=== PATIENT | female | born 1955 ===

== ENCOUNTER 2016-10-23 14:24 | Inpatient (IN) | payer MEDICAID, OTHER ==
[2016-10-23 14:24] VITALS: BMI 22.2
--- NOTE | 2016-10-23 15:02 | ED PDOC ---
HPI: General Adult Time Seen by Provider: 10/23/16 14:43 Chief Complaint (Nursing): Weakness/Neurological Deficit Chief Complaint (Provider): difficulty walking History Per: Other (home child care provider) History/Exam Limitations: clinical condition Additional Complaint(s): 61yo female brought to the ED by homemaker for difficulty walking / confusion. Patient was dropped off from daycare to homemaker today who immediately noticed a change in balance while walking. States this is not normal for patient. Patient denies any pain. Onset unknown. History obtained from home health aide who just started taking care of patient this afternoon. Past Medical History Reviewed: Historical Data, Nursing Documentation, Vital Signs Vital Signs: Last Vital Signs Temp 97.2 F L 10/23/16 19:43 Pulse 50 L 10/23/16 20:05 Resp 18 10/23/16 20:05 BP 116/63 10/23/16 19:43 Pulse Ox 100 10/23/16 19:43 - Medical History PMH: Alzheimer's Disease, Dementia Denies: Diabetes, Hepatitis, HIV, HTN, Chronic Kidney Disease, Seizures, Sexually Transmitted Disease - Family History Family History: States: Unknown Family Hx - Home Medications Home Medications: Ambulatory Orders Medication Instructions Recorded Folic Acid 1 mg PO DAILY 06/19/16 Memantine HCl/Donepezil HCl 1 cap PO DAILY 09/19/16 [Namzaric Titration Pack] Mirtazapine [Remeron] 15 mg PO HS 09/19/16 Rivastigmine [Exelon 13.3 mg/24 hr 1 patch TD DAILY 09/19/16 Patch] - Allergies Allergies/Adverse Reactions: Allergies Allergy/AdvReac Type Severity Reaction Status Date / Time No Known Allergies Allergy Verified 10/23/16 14:30 Review of Systems Review Of Systems: ROS cannot be obtained secondary to pt's inabilty to answer questions. Cardiovascular: Negative for: Chest Pain Neurological: Positive for: Confusion. Negative for: Headache Physical Exam - Reviewed Nursing Documentation Reviewed: Yes Vital Signs Reviewed: Yes - Physical Exam Appears: Positive for: Well, Non-toxic, No Acute Distress Head Exam: Positive for: ATRAUMATIC, NORMAL INSPECTION, NORMOCEPHALIC Skin: Positive for: Pallor Eye Exam: Positive for: EOMI, PERRL ENT: Positive for: Other (tacky muous membranes) Cardiovascular/Chest: Positive for: Regular Rate, Rhythm Respiratory: Positive for: Normal Breath Sounds. Negative for: Rales, Rhonchi, Wheezing Gastrointestinal/Abdominal: Positive for: Soft. Negative for: Tenderness Extremity: Positive for: Normal ROM. Negative for: Tenderness Neurologic/Psych: Positive for: Gait (ataxic gait), Aphasia (possible expressive aphasia), Other (Normal finger to nose test.). Negative for: Motor/ Sensory Deficits, Facial Droop - Laboratory Results Result Diagrams: 10/23/16 15:05 10/23/16 15:05 - ECG ECG: Positive for: Interpreted By Me, Viewed By Me ECG Rhythm: Positive for: Sinus Bradycardia. Negative for: ST/T Changes O2 Sat by Pulse Oximetry: 97 (RA) Pulse Ox Interpretation: Normal Medical Decision Making Medical Decision Makin Impression weakness Differential includes stroke, metabolic encephalopathy, dehydration, dementia, sepsis. Pt will be hospitalized pending ER workup, for full possible CVA. Plan: -EKG -CT Head w/o -CXR -Labs -blood culture -reassess Accession No. : [id number] Patient Name / ID : ETIENNE LEDESMA / [id number] Exam Date : 10/23/2016 15:27:44 ( Approved ) Study Comment : Sex / Age : F / 61Y Creator : Rufino Ruff MD Dictator : Rufino Ruff MD Answering Service Telephone Operator : Fine Grade Operator : Rufino Ruff MD Approver2 : Report Date : 10/23/2016 16:02:29 My Comment : PROCEDURE: CT HEAD WITHOUT CONTRAST. HISTORY: ataxic gait COMPARISON: Comparison made with CT scan brain 06/19/2016. TECHNIQUE: Axial computed tomography images were obtained through the head/brain without intravenous contrast. Radiation dose: Total exam DLP = 757.63 mGy-cm. This CT exam was performed using one or more of the following dose reduction techniques: Automated exposure control, adjustment of the mA and/or kV according to patient size, and/or use of iterative reconstruction technique. FINDINGS: HEMORRHAGE: No acute parenchymal, subarachnoid nor extra-axial hemorrhage. BRAIN: There is a small vague elliptical shaped area of low-attenuation right aspect of the ritesh best seen on axial series 4, image number 12 which could represent artifact however age indeterminate lacunar-type infarct cannot be excluded. Clinical correlation recommended. Re- demonstrated diffuse/confluent periventricular white matter ischemic changes again seen extending peripherally into the deep and subcortical white matter both cerebral hemispheres. In addition, there is extension of these changes into the white matter tracts of both basal nuclei. Multiple more discrete chronic bilateral basal nuclei lacunar type infarcts are also felt to be present. Bold VENTRICLES: Mild generalized volume loss. CALVARIUM: There are no acute calvarial fracture seen. . Note also again made of a rounded bony overgrowth arising from the left suboccipital calvarium that is nonspecific though could represent a small exostosis unchanged from prior study. PARANASAL SINUSES: The frontal sinuses remain hypoplastic/underpneumatized. Remaining visualized paranasal sinuses are well-developed. No fluid levels seen to suggest acute sinusitis. MASTOID AIR CELLS: Unremarkable as visualized. No inflammatory changes. OTHER FINDINGS: None. IMPRESSION: Questionable artifact versus age-indeterminate lacunar type infarct right aspect of the ritesh as above. Mild to moderate chronic white matter ischemic changes. Pt getting agitated in ER. Ativan/Haldol ordered. DW Dr Childs Med Service and Dr Livingston Neuro oncall. Orders placed as per discussion. Disposition - Clinical Impression Clinical Impression: Ataxia Counseled Patient/Family Regarding: Studies Performed, Diagnosis - Disposition Disposition Time: 15:00 Condition: STABLE - Pt Status Changed To: Hospital Disposition Of: Inpatient - Admit Certification Admit to Inpatient:: After my assessment, the patient will require hospitalization for at least two midnights. This is because of the severity of symptoms shown, intensity of services needed, and/or the medical risk in this patient being treated as an outpatient. - POA Present On Arrival: Falls Or Trauma Additional Comments - Additional Comments Additional Comments: Scribe Attestation: Documented by Ez Smith, acting as a scribe for Yanni Robertson MD. Provider Scribe Attestation: All medical record entries made by the Scribe were at my direction and personally dictated by me. I have reviewed the chart and agree that the record accurately reflects my personal performance of the history, physical exam, medical decision making, and the department course for this patient. I have also personally directed, reviewed, and agree with the discharge instructions and disposition.
[2016-10-23 15:29] LABS: VENOUS BLOOD GAS BASE EXCESS 4.3 mmol/L (0.0-2.0); VENOUS BLOOD GAS PCO2 57 mmHg (40-60); VENOUS BLOOD PH 7.35 (7.32-7.43)
[2016-10-23 15:32] LABS: BASO % 0.4 % (0.0-2.0); EOS % 0.3 % (0.0-4.0); HEMATOCRIT 39.2 % (34.0-47.0); LYMPH # 1.2 K/uL (1.0-4.3); MEAN CELL VOLUME 90.5 fl (81.0-99.0); MEAN CORPUSCULAR HEMOGLOBIN 29.9 pg (27.0-31.0); MEAN CORPUSCULAR HGB CONC 33.1 g/dL (33.0-37.0); MEAN PLATELET VOLUME 7.9 fl (7.2-11.7); MONO # 0.6 K/uL (0.0-0.8); MONO % 4.9 % (0.0-10.0); NEUT # 9.7 K/uL (1.8-7.0); NEUT % 84.4 % (50.0-75.0); RED CELL DISTRIBUTION WIDTH 13.9 % (11.5-14.5); WHITE BLOOD COUNT 11.5 K/uL (4.8-10.8)
[2016-10-23 15:50] LABS: ALB/GLOB RATIO 1.5 (1.0-2.1); ALKALINE PHOSPHATASE 69 U/L (38-126); ALT/SGPT 41 U/L (9-52); AST/SGOT 25 U/L (14-36); BILIRUBIN,TOTAL 0.6 mg/dl (0.2-1.3); BLOOD UREA NITROGEN 8 mg/dl (7-17); CARBON DIOXIDE 26 mmol/L (22-30); CHLORIDE 98 mmol/L (98-107); CHOLESTEROL 128 mg/dL (0-199); GFR AFRICAN-AMERICAN > 60; GLUCOSE,RANDOM 170 mg/dL (65-105); MAGNESIUM 2.1 MG/DL (1.6-2.3); PHOSPHOROUS 4.6 mg/dl (2.5-4.5); POTASSIUM 3.6 MMOL/L (3.6-5.0); SODIUM 140 mmol/l (132-148); TOTAL PROTEIN 6.8 G/DL (6.3-8.2)
--- NOTE | 2016-10-23 16:03 | CT ---
PROCEDURE: CT HEAD WITHOUT CONTRAST. HISTORY: ataxic gait COMPARISON: Comparison made with CT scan brain 06/19/2016. TECHNIQUE: Axial computed tomography images were obtained through the head/brain without intravenous contrast. Radiation dose: Total exam DLP = 757.63 mGy-cm. This CT exam was performed using one or more of the following dose reduction techniques: Automated exposure control, adjustment of the mA and/or kV according to patient size, and/or use of iterative reconstruction technique. FINDINGS: HEMORRHAGE: No acute parenchymal, subarachnoid nor extra-axial hemorrhage. BRAIN: There is a small vague elliptical shaped area of low-attenuation right aspect of the ritesh best seen on axial series 4, image number 12 which could represent artifact however age indeterminate lacunar-type infarct cannot be excluded. Clinical correlation recommended. Re- demonstrated diffuse/confluent periventricular white matter ischemic changes again seen extending peripherally into the deep and subcortical white matter both cerebral hemispheres. In addition, there is extension of these changes into the white matter tracts of both basal nuclei. Multiple more discrete chronic bilateral basal nuclei lacunar type infarcts are also felt to be present. Bold VENTRICLES: Mild generalized volume loss. CALVARIUM: There are no acute calvarial fracture seen. . Note also again made of a rounded bony overgrowth arising from the left suboccipital calvarium that is nonspecific though could represent a small exostosis unchanged from prior study. PARANASAL SINUSES: The frontal sinuses remain hypoplastic/underpneumatized. Remaining visualized paranasal sinuses are well-developed. No fluid levels seen to suggest acute sinusitis. MASTOID AIR CELLS: Unremarkable as visualized. No inflammatory changes. OTHER FINDINGS: None. IMPRESSION: Questionable artifact versus age-indeterminate lacunar type infarct right aspect of the ritesh as above. Mild to moderate chronic white matter ischemic changes.
[2016-10-23] MEDS ORDERED: Aspirin 325 mg EC Tablets PO ONE (16:12)
[2016-10-23 16:16] LABS: PARTIAL THROMBOPLASTIN TIME 22.5 SECONDS (23.3-32.5)
--- NOTE | 2016-10-23 16:31 | RAD ---
HISTORY: weakness COMPARISON: Comparison chest 08/29/2016. FINDINGS: LUNGS: No active pulmonary disease. Mild biapical pleural thickening. PLEURA: No significant pleural effusion identified, no pneumothorax apparent. CARDIOVASCULAR: Normal. OSSEOUS STRUCTURES: No significant abnormalities. VISUALIZED UPPER ABDOMEN: Normal. OTHER FINDINGS: None. IMPRESSION: No acute infiltrates Mild biapical pleural thickening.
--- NOTE | 2016-10-23 18:58 | MRI ---
PROCEDURE: MRI BRAIN WITHOUT CONTRAST HISTORY: ataxia COMPARISON: None. TECHNIQUE: Multiplanar, multisequence MR images of the brain were obtained without intravenous contrast enhancement. FINDINGS: HEMORRHAGE: No acute parenchymal, subarachnoid or extra-axial hemorrhage. DWI: No evidence of acute or subacute infarct. The BRAIN PARENCHYMA: Moderate diffuse/ confluent chronic periventricular white matter ischemic changes are seen extending peripherally into the deep and subcortical white matter both cerebral hemispheres. Multiple more discrete chronic appearing lacunar type infarcts also seen scattered about the deep and subcortical white matter as well as both basal nuclei. None of these changes exhibit restricted diffusion. VENTRICLES: Mild generalized volume loss. CRANIUM: Unremarkable. ORBITS: Grossly unremarkable. PARANASAL SINUSES/MASTOIDS: No evidence of acute sinusitis. VASCULAR SYSTEM: Visualized major vascular flow voids at skull base are patent. OTHER FINDINGS: Are None. IMPRESSION: No the acute intracranial hemorrhage or infarct. Moderate chronic white matter and basal nuclei ischemic changes. Mild generalized volume loss.
--- NOTE | 2016-10-23 19:32 | CARD ---
APPROVED REPORT EKG Measurement Heart [id number] <Conclusion> Sinus bradycardia Possible Left atrial enlargement Left ventricular hypertrophy Abnormal ECG
--- NOTE | 2016-10-23 20:10 | CP.PCM.CON ---
History of Present Illness - History of Present Illness History of Present Illness: Mrs. Bautista is a 61-year-old woman with a past medical history of advanced dementia who was noted to be unstable when walking today. She presented to the ED and an MRI of the brain was ordered. However, she was apparently given 5 mg of Haldol and 2 mg of Ativan. She is now somnolent and difficult to arouse or examine. Review of Systems - Review of Systems All systems: reviewed and no additional remarkable complaints except Review of Systems: unable to obtain the rest due to the patient's current condition. Past Patient History - Past Medical History & Family History Past Medical History?: Yes - Past Social History Smoking Status: Unknown If Ever Smoked - CARDIAC Hx Hypertension: No - PULMONARY Hx Respiratory Disorders: No - NEUROLOGICAL Hx Alzheimer's Disease: Yes Hx Dementia: Yes Hx Seizures: No - HEENT Hx HEENT Problems: No - RENAL Hx Chronic Kidney Disease: No - ENDOCRINE/METABOLIC Hx Endocrine Disorders: No - HEMATOLOGICAL/ONCOLOGICAL Hx Human Immunodeficiency Virus (HIV): No - INTEGUMENTARY Hx Dermatological Problems: No - MUSCULOSKELETAL/RHEUMATOLOGICAL Hx Falls: No Hx Unsteady Gait: Yes - GASTROINTESTINAL Hx Gastrointestinal Disorders: No - GENITOURINARY/GYNECOLOGICAL Hx Sexually Transmitted Disorders: No - PSYCHIATRIC Hx Psychophysiologic Disorder: No Hx Substance Use: No - SURGICAL HISTORY Hx Surgeries: No - ANESTHESIA Hx Anesthesia: No Meds Allergies/Adverse Reactions: Allergies Allergy/AdvReac Type Severity Reaction Status Date / Time No Known Allergies Allergy Verified 10/23/16 14:30 - Medications Medications: Current Medications Aspirin (Ecotrin) 81 mg PO DAILY [facility] Donepezil HCl (Aricept) 10 mg PO HS [facility] Enoxaparin Sodium (Lovenox) 40 mg SC DAILY [facility] PRN Reason: Protocol Folic Acid (Folic Acid) 1 mg PO DAILY [facility] Home Med (Rivastigmine [Exelon 13.3 Mg/24 Hr Patch]) 1 patch TD DAILY [facility] Dextrose/Sodium Chloride (Dextrose 5%/0.9% Ns 1000 Ml) 1,000 mls @ 60 mls/hr IV .[id number] [facility] Stop: 10/24/16 20:16 Memantine (Namenda) 10 mg PO DAILY [facility] Mirtazapine (Remeron) 15 mg PO HS [facility] Physical Exam - Constitutional Appears: Well - Head Exam Head Exam: ATRAUMATIC, NORMAL INSPECTION, NORMOCEPHALIC - Eye Exam Eye Exam: EOMI, Normal appearance, PERRL - Neurological Exam Additional comments: Asleep. Pupils are reactive, reflexes are intact, plantar responses are downgoing, she withdraws to pain. Unable to perform the rest of the exam at this time. Results - Vital Signs Recent Vital Signs: Last Vital Signs Temp 97.2 F L 10/23/16 19:43 Pulse 51 L 10/23/16 19:43 Resp 20 10/23/16 19:43 BP 116/63 10/23/16 19:43 Pulse Ox 100 10/23/16 19:43 - Labs Result Diagrams: 10/23/16 15:05 10/23/16 15:05 - Imaging and Cardiology MRI - head Status: Image reviewed by me, Report reviewed by me (No acute findings on MRI of the brain. Chronic small vessel disease. No pontine infarct is identified.) Assessment & Plan (1) Ataxia Assessment and Plan: Unable to fully assess at this time. MRI of the brain is not consistent with any acute injury pattern. Will re-evaluate in the AM when Haldol and Ativan effect is less evident. Status: Acute
[2016-10-23] MEDS ORDERED: Dextrose 5%/0.9% NS 1,000 ML IV SCH (20:15)
[2016-10-24 07:06] LABS: HEMATOCRIT 41.2 % (34.0-47.0); MEAN CELL VOLUME 91.6 fl (81.0-99.0); MEAN CORPUSCULAR HEMOGLOBIN 29.7 pg (27.0-31.0); MEAN CORPUSCULAR HGB CONC 32.4 g/dL (33.0-37.0); RED CELL DISTRIBUTION WIDTH 13.9 % (11.5-14.5); WHITE BLOOD COUNT 14.1 K/uL (4.8-10.8)
[2016-10-24 07:26] LABS: ALB/GLOB RATIO 1.4 (1.0-2.1); ALKALINE PHOSPHATASE 68 U/L (38-126); ALT/SGPT 35 U/L (9-52); AST/SGOT 23 U/L (14-36); BILIRUBIN,TOTAL 0.9 mg/dl (0.2-1.3); BLOOD UREA NITROGEN 6 mg/dl (7-17); CARBON DIOXIDE 29 mmol/L (22-30); CHLORIDE 102 mmol/L (98-107); GFR AFRICAN-AMERICAN > 60; GLUCOSE,RANDOM 134 mg/dL (65-105); SODIUM 144 mmol/l (132-148); TOTAL PROTEIN 6.6 G/DL (6.3-8.2)
[2016-10-24 07:53] LABS: THYROID STIMULATING HORMONE 0.49 mIU/ML (0.46-4.68)
[2016-10-24] MEDS: Enoxaparin 40 mg Syringe SC SCH (09:30)
--- NOTE | 2016-10-24 09:53 | US ---
PROCEDURE: Duplex ultrasound of the carotid and vertebral arteries. HISTORY: ataxia COMPARISON: None available. TECHNIQUE: Grayscale and duplex Doppler evaluation of the cervical carotid and vertebral arteries were performed. The common carotid, carotid bifurcations and cervical ICA and proximal ECA were evaluated. The vertebral arteries were evaluated for gross patency and direction. FINDINGS: RIGHT CAROTID ARTERIES: Common Carotid Artery: Normal. Maximal flow velocity of 82 cm/s. Carotid Bifurcation: Normal. Internal Carotid Artery:Normal. Maximal flow velocity of 100.3 cm/s. External Carotid Artery (proximal branches): Normal. Maximal flow velocity of 89.9 cm/s. ICA/CCA Ratio: 1.2 LEFT CAROTID ARTERIES: Common Carotid Artery: Normal. Maximal flow velocity of 78.5 cm/s. Carotid Bifurcation: Normal. Internal Carotid Artery:Normal. Maximal flow velocity of 94.3 cm/s. External Carotid Artery (proximal branches): Normal. Maximal flow velocity of 72.6 cm/s. ICA/CCA Ratio: 1.2 VERTEBRAL ARTERIES: Right Vertebral Artery: Patent. Antegrade flow. Left Vertebral Artery: Patent. Antegrade flow. OTHER FINDINGS: None. IMPRESSION: No hemodynamically significant stenosis. No evidence of atherosclerotic plaques.
[2016-10-24 15:14] LABS: RBC URINE 1 /hpf (0-3); URINE BILIRUBIN NEGATIVE (NEGATIVE); URINE BLOOD SMALL (NEGATIVE); URINE COLOR STRAW (YELLOW); URINE GLUCOSE (UA) NEG (Normal); URINE KETONE NEGATIVE (NEGATIVE); URINE LEUKOCYTE ESTERASE SMALL Leu/uL (Negative); URINE PROTEIN NEGATIVE (NEGATIVE); URINE UROBILINOGEN 0.2-1.0 mg/dL (0.2-1.0); WBC URINE 2 /hpf (0-5)
[2016-10-24] MEDS: RIVASTIGMINE TD SCH (21:40)
--- NOTE | 2016-10-24 22:36 | CP.PCM.HP ---
History of Present Illness - History of Present Illness History of Present Illness: A 61 yr old female with hx of Dementia, dependant on ADL\IDL was brought by homemaker as she appeared to be more confused,not her base line.found to be elevated WBC . sitting in chair,not eating much,pleasant looking. Present on Admission - Present on Admission Any Indicators Present on Admission: No Review of Systems - Review of Systems All systems: reviewed and no additional remarkable complaints except - Neurological Neurological: Behavioral Changes - Hematologic/Lymphatic Additional comments: notes says she being ok to most of questions. Past Patient History - Past Medical History & Family History Past Medical History?: Yes - Past Social History Smoking Status: Unknown If Ever Smoked - CARDIAC Hx Hypertension: No - PULMONARY Hx Respiratory Disorders: No - NEUROLOGICAL Hx Alzheimer's Disease: Yes Hx Dementia: Yes Hx Seizures: No - HEENT Hx HEENT Problems: No - RENAL Hx Chronic Kidney Disease: No - ENDOCRINE/METABOLIC Hx Endocrine Disorders: No - HEMATOLOGICAL/ONCOLOGICAL Hx Human Immunodeficiency Virus (HIV): No - INTEGUMENTARY Hx Dermatological Problems: No - MUSCULOSKELETAL/RHEUMATOLOGICAL Hx Falls: No Hx Unsteady Gait: Yes - GASTROINTESTINAL Hx Gastrointestinal Disorders: No - GENITOURINARY/GYNECOLOGICAL Hx Sexually Transmitted Disorders: No - PSYCHIATRIC Hx Psychophysiologic Disorder: No Hx Substance Use: No - SURGICAL HISTORY Hx Surgeries: No - ANESTHESIA Hx Anesthesia: No Meds Allergies/Adverse Reactions: Allergies Allergy/AdvReac Type Severity Reaction Status Date / Time No Known Allergies Allergy Verified 10/23/16 14:30 Physical Exam - Constitutional Appears: No Acute Distress - Head Exam Head Exam: NORMAL INSPECTION - Eye Exam Eye Exam: EOMI, Normal appearance - ENT Exam ENT Exam: Normal Exam - Neck Exam Neck exam: Positive for: Normal Inspection - Respiratory Exam Respiratory Exam: Clear to Auscultation Bilateral, NORMAL BREATHING PATTERN - Cardiovascular Exam Cardiovascular Exam: REGULAR RHYTHM, +S1, +S2. absent: Systolic Murmur - GI/Abdominal Exam GI & Abdominal Exam: Normal Bowel Sounds, Soft. absent: Tenderness - Neurological Exam Neurological exam: Alert Additional comments: slow gait slow mentation. knows her name,rest of questions, remains silent. no focal deficits, obeys commands - Psychiatric Exam Psychiatric exam: Flat Affect - Skin Skin Exam: Normal Color Results - Vital Signs Recent Vital Signs: Last Vital Signs Temp 97.3 F L 10/24/16 21:17 Pulse 69 10/24/16 21:19 Resp 18 10/24/16 21:17 BP 151/80 H 10/24/16 21:17 Pulse Ox 100 10/24/16 21:17 - Labs Result Diagrams: 10/25/16 05:10 10/24/16 06:20 Labs: Laboratory Results - last 24 hr 10/24/16 10/24/16 10/24/16 01:15 06:20 14:30 WBC 14.1 H RBC 4.49 Hgb 13.3 Hct 41.2 MCV 91.6 MCH 29.7 MCHC 32.4 L RDW 13.9 Plt Count 248 Sodium 144 Potassium 4.0 Chloride 102 Carbon Dioxide 29 Anion Gap 16 BUN 6 L Creatinine 0.6 L Est GFR ( Amer) > 60 Est GFR (Non-Af Amer) > 60 Random Glucose 134 H Hemoglobin A1c 5.9 Calcium 9.0 Total Bilirubin 0.9 AST 23 ALT 35 Alkaline Phosphatase 68 Troponin I < 0.0120 < 0.0120 Total Protein 6.6 Albumin 3.9 Globulin 2.8 Albumin/Globulin Ratio 1.4 TSH 3rd Generation 0.49 Urine Color Straw Urine Clarity Clear Urine pH 8.0 Ur Specific [place] < 1.005 Urine Protein Negative Urine Glucose (UA) Neg Urine Ketones Negative Urine Blood Small Urine Nitrate Negative Urine Bilirubin Negative Urine Urobilinogen 0.2-1.0 Ur Leukocyte Esterase Small Urine RBC (Auto) 1 Urine Microscopic WBC 2 - EKG Data EKG Interpreted by: Other - Imaging and Cardiology CT scan - head Status: Report reviewed by me Chest x-ray Status: Report reviewed by me Assessment & Plan (1) Leukocytosis Status: Acute Comment: wbc from 11 to 14. blood c\s. UA. start on rocephin for now. r\o sepsis (2) Ataxia Status: Acute Comment: not noted now. MRI of head- NO ACUTE CHANGES. pt EVALV. (3) Alzheimer's dementia Status: Chronic Comment: CONTINUE HOME MEDS. Decision To Admit - Pt Status Changed To: Hospital Disposition Of: Inpatient - Admit Certification Admit to Inpatient:: After my assessment, the patient will require hospitalization for at least two midnights. This is because of the severity of symptoms shown, intensity of services needed, and/or the medical risk in this patient being treated as an outpatient. - . Bed Request Type: Med/Surg Admitting Physician: Sophy Childs
[2016-10-25 06:46] LABS: MEAN CELL VOLUME 91.3 fl (81.0-99.0); MEAN CORPUSCULAR HEMOGLOBIN 29.9 pg (27.0-31.0); MEAN CORPUSCULAR HGB CONC 32.8 g/dL (33.0-37.0); RED CELL DISTRIBUTION WIDTH 13.9 % (11.5-14.5); WHITE BLOOD COUNT 9.7 K/uL (4.8-10.8)
[2016-10-25] MEDS: RIVASTIGMINE TD SCH (08:28)
[2016-10-25] MEDS: Enoxaparin 40 mg Syringe SC SCH (08:29)
--- NOTE | 2016-10-25 21:29 | CP.PCM.PN ---
Subjective - Date & Time of Evaluation Date of Evaluation: 10/25/16 Time of Evaluation: 15:00 - Subjective Subjective: vitals stable. one set of blood c\s- gram positive cocci.wbc- 9.7, tsh -normal, normal hba1c. no new changes. UA-normal. Objective - Vital Signs/Intake and Output Vital Signs (last 24 hours): Temp Pulse Resp BP Pulse Ox 98.1 F 70 20 132/76 97 10/25/16 20:02 10/25/16 20:02 10/25/16 20:02 10/25/16 20:02 10/25/16 20:02 - Medications Medications: Current Medications Acetaminophen (Tylenol 325mg Tab) 650 mg PO Q4 PRN PRN Reason: Headache Last Admin: 10/25/16 01:03 Dose: 650 mg Aspirin (Ecotrin) 81 mg PO DAILY [facility] Last Admin: 10/25/16 08:27 Dose: 81 mg Donepezil HCl (Aricept) 10 mg PO HS [facility] Last Admin: 10/24/16 21:41 Dose: 10 mg Enoxaparin Sodium (Lovenox) 40 mg SC DAILY [facility] PRN Reason: Protocol Last Admin: 10/25/16 08:29 Dose: 40 mg Folic Acid (Folic Acid) 1 mg PO DAILY [facility] Last Admin: 10/25/16 08:28 Dose: 1 mg Home Med (Rivastigmine [Exelon 13.3 Mg/24 Hr Patch]) 1 patch TD DAILY [facility] Last Admin: 10/25/16 08:28 Dose: 1 patch Ceftriaxone Sodium 1 gm/ (Sodium Chloride) 100 mls @ 100 mls/hr IVPB DAILY [facility] Last Admin: 10/25/16 08:35 Dose: 100 mls/hr Memantine (Namenda) 10 mg PO DAILY [facility] Last Admin: 10/25/16 08:27 Dose: 10 mg Mirtazapine (Remeron) 15 mg PO HS [facility] Last Admin: 10/24/16 21:41 Dose: 15 mg - Labs Labs: 10/25/16 05:10 10/24/16 06:20 PT 11.0 SECONDS (9.6-11.2) 10/23/16 15:05 INR 1.06 (0.92-1.08) 10/23/16 15:05 APTT 22.5 SECONDS (23.3-32.5) L 10/23/16 15:05 - Additional Findings Additional findings: - Constitutional Appears: No Acute Distress - Head Exam Head Exam: NORMAL INSPECTION - Eye Exam Eye Exam: EOMI, Normal appearance - ENT Exam ENT Exam: Normal Exam - Neck Exam Neck exam: Positive for: Normal Inspection - Respiratory Exam Respiratory Exam: Clear to Auscultation Bilateral, NORMAL BREATHING PATTERN - Cardiovascular Exam Cardiovascular Exam: REGULAR RHYTHM, +S1, +S2. absent: Systolic Murmur - GI/Abdominal Exam GI & Abdominal Exam: Normal Bowel Sounds, Soft. absent: Tenderness - Neurological Exam Neurological exam: Alert Additional comments: slow gait slow mentation. knows her name,rest of questions, remains silent. no focal deficits, obeys commands - Psychiatric Exam Psychiatric exam: normal Affect - Skin Skin Exam: Normal Color Assessment and Plan (1) Leukocytosis Assessment & Plan: r\o sepsis likley contamination repeat blood c\s continue meds. Status: Acute (2) Ataxia Status: Resolved (3) Alzheimer's dementia Status: Chronic - Assessment and Plan (Free Text) Assessment: continue meds
[2016-10-26] MEDS: Enoxaparin 40 mg Syringe SC SCH (10:37)
[2016-10-26] MEDS: RIVASTIGMINE TD SCH (10:37)
[2016-10-26 11:55] VITALS: RESP 18
--- NOTE | 2016-10-26 12:14 | CARD ---
APPROVED REPORT EXAM: Two-dimensional and M-mode echocardiogram with Doppler and color Doppler. Other Information Quality : AverageRhythm : NSR INDICATION Ataxia 2D DIMENSIONS IVSd0.93 (0.7-1.1cm)LVDd3.11 (3.9-5.9cm) LVOT Diameter1.88 (1.8-2.4cm)PWd0.93 (0.7-1.1cm) IVSs1.02 (0.8-1.2cm)LVDs2.45 (2.5-4.0cm) FS (%) 21.3 %PWs1.07 (0.8-1.2cm) M-Mode DIMENSIONS Left Atrium (MM)2.47 (2.5-4.0cm)Aortic Root2.47 (2.2-3.7cm) Mitral Valve MV E Owgdvxmh00.8cm/sMV DECEL YLLX078oyPV A Ziiqiszz32.2cm/s MV IAK34foW/A ratio1.1MVA (PHT)2.65cm2 TDI Lateral E' Peak V12.30cm/sMedial E' Peak V9.45cm/sE/Lateral E'5.1 E/Medial E'6.6 LEFT VENTRICLE The left ventricle is normal size. There is normal left ventricular wall thickness. The left ventricular function is normal. The left ventricular ejection fraction is - 65%. There is normal LV segmental wall motion. The left ventricular diastolic function is abnormal. No left ventricle thrombus noted on this study. There is no ventricular septal defect visualized. There is no left ventricular aneurysm. There is no mass noted in the left ventricle. RIGHT VENTRICLE The right ventricle is normal size. There is normal right ventricular wall thickness. The right ventricular systolic function is normal. ATRIA The left atrium size is normal. There is no thrombus suspected in the left atrium. The right atrium size is normal. The interatrial septum is intact with no evidence for an atrial septal defect. AORTIC VALVE The aortic valve is normal in structure and function. No aortic regurgitation is present. There is no aortic valvular stenosis. There is no aortic valvular vegetation. MITRAL VALVE The mitral valve is normal in structure and function. There is no evidence of mitral valve prolapse. There is no mitral valve stenosis. There is no mitral valve regurgitation noted. TRICUSPID VALVE The tricuspid valve is normal in structure and function. There is no tricuspid valve regurgitation noted. There is no tricuspid valve prolapse or vegetation. There is no tricuspid valve stenosis. PULMONIC VALVE The pulmonic valve is not well visualized. Doppler studies of the PV were not performed. GREAT VESSELS The aortic root is normal in size. The IVC is normal in size and collapses >50% with inspiration. PERICARDIAL EFFUSION The pericardium appears normal. There is no pleural effusion. <Conclusion> The left ventricle is normal in size and wall thickness. The left ventricular function is normal. The left ventricular ejection fraction is - 65%. The left atrium, right ventricle and right atrium are normal in size. The mitral, aortic and tricuspid valves are normal.
[2016-10-26 16:16] VITALS: BP 127/71; PULSE 95; TEMP 98; O2SAT 99
--- NOTE | 2016-10-26 21:00 | CP.PCM.DIS ---
Provider - Provider Date of Admission: 10/23/16 16:31 Attending physician: Sophy Childs MD Time Spent in preparation of Discharge (in minutes): 30 Diagnosis - Discharge Diagnosis (1) Leukocytosis Status: Resolved Comment: probabale contamination. 1 set grew ,other 2 were negative. send home on emperic abx for a week. to f\u PMD (2) Ataxia Status: Resolved (3) Alzheimer's dementia Status: Chronic Hospital Course - Lab Results Lab Results: Micro Results 10/25/16 10:55 Blood Blood Culture - Preliminary NO GROWTH AFTER 24 HOURS 10/25/16 11:10 Blood Blood Culture - Preliminary NO GROWTH AFTER 24 HOURS Most Recent Lab Values WBC 9.7 K/uL (4.8-10.8) 10/25/16 05:10 RBC 4.61 Mil/uL (3.80-5.20) 10/25/16 05:10 Hgb 13.8 g/dL (12.0-16.0) 10/25/16 05:10 Hct 42.0 % (34.0-47.0) 10/25/16 05:10 MCV 91.3 fl (81.0-99.0) 10/25/16 05:10 MCH 29.9 pg (27.0-31.0) 10/25/16 05:10 MCHC 32.8 g/dL (33.0-37.0) L 10/25/16 05:10 RDW 13.9 % (11.5-14.5) 10/25/16 05:10 Plt Count 269 K/uL (130-400) 10/25/16 05:10 MPV 7.9 fl (7.2-11.7) 10/23/16 15:05 Neut % (Auto) 84.4 % (50.0-75.0) H 10/23/16 15:05 Lymph % (Auto) 10.0 % (20.0-40.0) L 10/23/16 15:05 [place] % (Auto) 4.9 % (0.0-10.0) 10/23/16 15:05 Eos % (Auto) 0.3 % (0.0-4.0) 10/23/16 15:05 Baso % (Auto) 0.4 % (0.0-2.0) 10/23/16 15:05 Neut # 9.7 K/uL (1.8-7.0) H 10/23/16 15:05 Lymph # 1.2 K/uL (1.0-4.3) 10/23/16 15:05 [place] # 0.6 K/uL (0.0-0.8) 10/23/16 15:05 Eos # 0.0 K/uL (0.0-0.7) 10/23/16 15:05 Baso # 0.0 K/uL (0.0-0.2) 10/23/16 15:05 PT 11.0 SECONDS (9.6-11.2) 10/23/16 15:05 INR 1.06 (0.92-1.08) 10/23/16 15:05 APTT 22.5 SECONDS (23.3-32.5) L 10/23/16 15:05 pO2 32 mm/Hg (30-55) 10/23/16 15:25 VBG pH 7.35 (7.32-7.43) 10/23/16 15:25 VBG pCO2 57 mmHg (40-60) 10/23/16 15:25 VBG HCO3 27.2 mmol/L 10/23/16 15:25 VBG Total CO2 33.2 mmol/L (22-28) H 10/23/16 15:25 VBG O2 Sat (Calc) 66.1 % (40-65) H 10/23/16 15:25 VBG Base Excess 4.3 mmol/L (0.0-2.0) H 10/23/16 15:25 VBG Potassium 3.5 mmol/L (3.6-5.2) L 10/23/16 15:25 Sodium 135.0 mmol/L (132-148) 10/23/16 15:25 Chloride 103.0 mmol/L (98-107) 10/23/16 15:25 Glucose 162 mg/dL (65-105) H 10/23/16 15:25 Lactate 1.1 mmol/L (0.7-2.1) 10/23/16 15:25 FiO2 21.0 % 10/23/16 15:25 Sodium 144 mmol/l (132-148) 10/24/16 06:20 Potassium 4.0 MMOL/L (3.6-5.0) 10/24/16 06:20 Chloride 102 mmol/L (98-107) 10/24/16 06:20 Carbon Dioxide 29 mmol/L (22-30) 10/24/16 06:20 Anion Gap 16 (10-20) 10/24/16 06:20 BUN 6 mg/dl (7-17) L 10/24/16 06:20 Creatinine 0.6 mg/dL (0.7-1.2) L 10/24/16 06:20 Est GFR ( Amer) > 60 10/24/16 06:20 Est GFR (Non-Af Amer) > 60 10/24/16 06:20 POC Glucose (mg/dL) 190 mg/dL (65-110) H 10/23/16 15:00 Random Glucose 134 mg/dL (65-105) H 10/24/16 06:20 Hemoglobin A1c 5.9 % (4.2-6.5) 10/24/16 06:20 Calcium 9.0 mg/dL (8.4-10.2) 10/24/16 06:20 Phosphorus 4.6 mg/dl (2.5-4.5) H 10/23/16 15:05 Magnesium 2.1 MG/DL (1.6-2.3) 10/23/16 15:05 Total Bilirubin 0.9 mg/dl (0.2-1.3) 10/24/16 06:20 AST 23 U/L (14-36) 10/24/16 06:20 ALT 35 U/L (9-52) 10/24/16 06:20 Alkaline Phosphatase 68 U/L (38-126) 10/24/16 06:20 Troponin I < 0.0120 ng/mL (0.00-0.120) 10/24/16 06:20 NT-Pro-B Natriuret Pep 74.7 pg/ml (0-900) 10/23/16 15:05 Total Protein 6.6 G/DL (6.3-8.2) 10/24/16 06:20 Albumin 3.9 g/dL (3.5-5.0) 10/24/16 06:20 Globulin 2.8 gm/dL (2.2-3.9) 10/24/16 06:20 Albumin/Globulin Ratio 1.4 (1.0-2.1) 10/24/16 06:20 Triglycerides 60 mg/DL (0-149) 10/23/16 15:05 Cholesterol 128 mg/dL (0-199) 10/23/16 15:05 LDL Cholesterol Direct 72 mg/dL (0-129) 10/23/16 15:05 HDL Cholesterol 43 MG/DL (30-70) 10/23/16 15:05 TSH 3rd Generation 0.49 mIU/ML (0.46-4.68) 10/24/16 06:20 Venous Blood Potassium 3.5 mmol/L (3.6-5.2) L 10/23/16 15:25 Urine Color Straw (YELLOW) 10/24/16 14:30 Urine Clarity Clear (Clear) 10/24/16 14:30 Urine pH 8.0 (5.0-8.0) 10/24/16 14:30 Ur Specific [place] < 1.005 (1.003-1.030) 10/24/16 14:30 Urine Protein Negative mg/dL (NEGATIVE) 10/24/16 14:30 Urine Glucose (UA) Neg mg/dL (Normal) 10/24/16 14:30 Urine Ketones Negative mg/dL (NEGATIVE) 10/24/16 14:30 Urine Blood Small (NEGATIVE) 10/24/16 14:30 Urine Nitrate Negative (NEGATIVE) 10/24/16 14:30 Urine Bilirubin Negative (NEGATIVE) 10/24/16 14:30 Urine Urobilinogen 0.2-1.0 mg/dL (0.2-1.0) 10/24/16 14:30 Ur Leukocyte Esterase [place]/uL (Negative) 10/24/16 14:30 Urine RBC (Auto) 1 /hpf (0-3) 10/24/16 14:30 Urine Microscopic WBC 2 /hpf (0-5) 10/24/16 14:30 Blood Type O POSITIVE 10/23/16 15:00 Blood Type Confirm O POSITIVE 10/23/16 15:39 Antibody Screen Negative 10/23/16 15:00 BBK History Checked No verified bt 10/23/16 15:00 - Hospital Course Hospital Course: no acute events noted, improved Discharge Exam - Additional Findings Additional findings: - Constitutional Appears: No Acute Distress - Head Exam Head Exam: NORMAL INSPECTION - Eye Exam Eye Exam: EOMI, Normal appearance - ENT Exam ENT Exam: Normal Exam - Neck Exam Neck exam: Positive for: Normal Inspection - Respiratory Exam Respiratory Exam: Clear to Auscultation Bilateral, NORMAL BREATHING PATTERN - Cardiovascular Exam Cardiovascular Exam: REGULAR RHYTHM, +S1, +S2. absent: Systolic Murmur - GI/Abdominal Exam GI & Abdominal Exam: Normal Bowel Sounds, Soft. absent: Tenderness - Neurological Exam Neurological exam: Alert Additional comments: slow gait slow mentation. knows her name,rest of questions, remains silent. no focal deficits, obeys commands - Psychiatric Exam Psychiatric exam: normal Affect - Skin Skin Exam: Normal Color Discharge Plan - Discharge Medications Prescriptions: Ciprofloxacin [Cipro] 500 mg PO Q12 #10 tab - Follow Up Plan Condition: STABLE Disposition: HOME/ ROUTINE Instructions: Dementia (GEN), Urinary Tract Infection in Women (DC)
== END 2016-10-26 18:30 | disposition home health service (06) | DRG 35 ==
LOC: H.ER 14:24 → H.ERHOLD 16:31 → H.TEL 18:53
PROVIDERS: ADMIT Internal Medicine; ATTEND Internal Medicine
DX: R27.0 Ataxia, unspecified (principal); G30.9 Alzheimer's disease, unspecified; F02.80 Dementia in other diseases classified elsewhere, unspecified severity, without behavioral disturbance, psychotic disturbance, mood disturbance, and anxiety; D72.829 Elevated white blood cell count, unspecified; R26.81 Unsteadiness on feet